=== PATIENT | male | born 1970 | race Caucasian/White ===

== ENCOUNTER 2018-05-06 10:29 | Outpatient (CLI) | payer OTHER ==
--- NOTE | 2018-05-06 13:10 | RAD ---
LEFT FEMUR FRONTAL AND LATERAL IMAGIN05/06/2018 HISTORY: Fracture in August, status post surgery, pain. COMPARISON: None. FINDINGS: There is a comminuted, obliquely oriented fracture involving the distal left femoral shaft. This fra cture is traversed by an intramedullary renetta with three distal interlocking screws within the distal l eft femur and two proximal interlocking screws within the proximal left femur. There is no evidence for hardware failure. There is some interval callus formation, suggesting a degree of healing at the fracture site. No acute fracture is seen. IMPRESSION: Distal left femur fracture, status post open reduction and internal fixation, as above. This fractur e demonstrates some interval callus formation. POS: [facility]
== END 2018-05-06 10:30 | disposition home or self-care (01) ==
LOC: BICRAD 10:29
DX: S72.352D Displaced comminuted fracture of shaft of left femur, subsequent encounter for closed fracture with routine healing (principal); S72.332D Displaced oblique fracture of shaft of left femur, subsequent encounter for closed fracture with routine healing; L84 Corns and callosities